=== PATIENT | female | born 1990 | race African-American/Black ===

== ENCOUNTER → 2017-07-30 | Outpatient (CLI) | payer BC ==
[~2017-07-30] MED LIST: Docusate Sodium PO; Hydrocodone Bit/Acetaminophen PO; Ibuprofen PO; PREN1TAB25 PO
--- NOTE | 2017-07-30 16:32 | Diagnostic Imaging Report ---
INDICATION: survey, patient. TECHNIQUE: Multiple real-time grayscale images were obtained over the gravid uterus. COMPARISON: None during this . FINDINGS: A single live intrauterine fetus is seen measuring at 21 weeks 4 days by composite measurements. The fetus is in cephalic presentation. Amniotic fluid is qualitatively normal. Placenta is posterior and grade 2 with no evidence of previa. heart rate is 144 beats per minute. survey shows mild prominence of the renal pelvis of both kidneys, measuring 4 mm. bladder and stomach and ventricles and three-vessel cord and spine views were normal. Cord insertion could not be visualized. There is a questionable echogenic focus over the left ventricle. Cervical length is 5.6 cm. The maternal adnexa could not be visualized. There was no free fluid. Biometrical measurements are as follows: Biparietal 5.2 cm, age 21 weeks 6 days. Head circumference 18.68 cm, age 21 weeks 1 days. Abdominal circumference 16.7 cm, age 21 weeks 6 days. Femur length 3.47 cm, age 21 weeks 0 days. Sonographic estimate age: 21 weeks 4 days. Sonographic estimated date of delivery: 12/06/2017. Estimated Weight: 417 gm (+/- 61 gm). LMP percentile: 79%. heart rate: 144 beats per minute. number: 1 of 1. IMPRESSION: Single live intrauterine fetus measuring 21 weeks 4 days in size as above. survey showed mild prominence of the renal pelvis on both sides, for which followup is suggested. There is a questionable echogenic focus in the heart which could also be reevaluated at followup. Cord insertion could not be visualized and could also be reevaluated at followup. There is no other abnormal finding. Dictated by: Dictated on workstation # [id number]
== END ==
LOC: RAD 15:21
PROVIDERS: ATTEND Obstetrics & Gynecology
DX: Z36.89 Encounter for other specified antenatal screening (principal); Z3A.21 21 weeks gestation of pregnancy
CPT/HCPCS: 76805

== ENCOUNTER → 2017-09-24 | Outpatient (CLI) | payer BC ==
--- NOTE | 2017-09-24 13:30 | Diagnostic Imaging Report ---
INDICATION: Follow-up survey. TECHNIQUE: Multiple real-time grayscale images were obtained over the gravid uterus. COMPARISON: 07/30/2017. FINDINGS: There is a single live fetus in a cephalic presentation. heart rate was recorded at 149 beats per minute. The placenta is fundal and to the left. Amniotic fluid volume is normal. Follow-up survey again shows mild prominence of the renal pelves bilaterally measuring 5 mm on the right and 4 mm on the left. Cord insertion is unremarkable. extremities and ventricular outflow tracts of the heart are unremarkable. There continues to be an echogenic focus within the heart. No new abnormality is seen. IMPRESSION: There continues to be some mild prominence of the renal pelves bilaterally and continued follow-up could be obtained. There is also echogenic focus within the heart for which follow-up could be performed. Dictated by: Dictated on workstation # [id number]
== END ==
LOC: RAD 10:55
PROVIDERS: ATTEND Obstetrics & Gynecology
DX: Z36.89 Encounter for other specified antenatal screening (principal); O28.3 Abnormal ultrasonic finding on antenatal screening of mother; Z3A.26 26 weeks gestation of pregnancy
CPT/HCPCS: 76816

== ENCOUNTER 2017-11-26 14:33 | Inpatient (IN) | payer BC ==
[~2017-11-26] VITALS: Ht 167.6 cm; Wt 99.4 kg
[2017-11-26] VITALS (37 sets, daily range): BP systolic 98–133; BP diastolic 51–82
--- OUTSIDE RECORDS SUMMARY | 2017-11-26 14:51 | XMS REPORT | Continuity of Care Document ---
Author Author [facility] Organization [facility] Address Unknown Phone Unavailable Allergies Active Description Code Type Severity Reaction Onset Reported/Identified Relationship to Patient Clinical Status Yes NKANo Known Allergies NKA Miscellaneous Allergy Unknown N/A 07/07/2007 Medications There is no data. Problems Date Dx Coded Attending Type Code Diagnosis Diagnosed By 01/13/2014 CARLOS CARDENAS DO Ot 644.13 THREAT LABOR NEC-ANTEPAR 01/13/2014 CARLOS CARDENAS DO Ot V04.81 ND FOR PROPHYLACTIC VACCIN AND INOCULATI 01/16/2014 CARLOS CARDENAS DO Ot 665.41 01/16/2014 CARLOS CARDENAS DO Ot V04.81 01/16/2014 CARLOS CARDENAS DO Ot V27.0 07/31/2017 CARLOS CARDENAS DO Ot Z36.89 ENCOUNTER FOR OTHER SPECIFIED 07/31/2017 CARLOS CARDENAS DO Ot Z3A.21 21 WEEKS GESTATION OF 07/31/2017 CARLOS CARDENAS DO Ot Z36.89 ENCOUNTER FOR OTHER SPECIFIED 07/31/2017 CARLOS CARDENAS DO Ot Z3A.21 21 WEEKS GESTATION OF 08/01/2017 CARLOS CARDENAS DO Ot Z36.89 ENCOUNTER FOR OTHER SPECIFIED 08/01/2017 CARLOS CARDENAS DO Ot Z3A.21 21 WEEKS GESTATION OF 08/17/2017 CARLOS CARDENAS DO Ot Z36.89 ENCOUNTER FOR OTHER SPECIFIED 08/17/2017 CARLOS CARDENAS DO Ot Z3A.21 21 WEEKS GESTATION OF Procedures There is no data. Results There is no data. Encounters ACCT No. Visit Date/Time Discharge Status Pt. Type Provider Facility Loc./Unit Complaint [id number] 09/24/2017 11:00:00 09/24/2017 23:59:59 CLS Preadmit CARLOS CARDENAS DO [facility] RAD EVALUATE ANATOMY NOT SEEN ON PRIOR SONOGRAM [id number] 07/30/2017 15:21:00 07/30/2017 23:59:59 CLS Outpatient CARLOS CARDENAS DO [facility] RAD Z34.92 FETUS PRESENDT DURING 2ND TRI [id number] 2014 03:30:00 01/16/2014 14:45:00 DIS [facility]patient [id number] 01/13/2014 14:44:00 01/13/2014 18:25:00 DIS Outpatient CARLOS CARDENAS DO [facility] WSo C/O LEAKING FLUID
[2017-11-26] MEDS ORDERED: D5 LR IV SOLUTION 1,000 ML IV SCH (15:11)
[2017-11-26] MEDS ORDERED: MINERAL OIL CONCENTRATE 99.9% 15 ML UDC TOP PRN (15:15)
[2017-11-26] MEDS ORDERED: LACTATED RINGERS 1,000 ML IV ONE ×2 (15:17→16:08)
[2017-11-26 15:22] LABS: BASOPHILS % (AUTO) 0 % (0-10); EOSINOPHILS % (AUTO) 0 % (0-10); HEMATOCRIT 31 % (35-52); HEMOGLOBIN 10.3 G/DL (11.5-16.0); LYMPHOCYTES # (AUTO) 1.6 X 10^3 (1.0-4.0); LYMPHOCYTES % (AUTO) 16 % (12-44); MEAN CORPUSCULAR HEMOGLOBIN 26 PG (25-34); MEAN CORPUSCULAR HGB CONC 33 G/DL (32-36); MEAN CORPUSCULAR VOLUME 77 FL (80-99); MEAN PLATELET VOLUME 10.5 FL (7.4-10.4); MONOCYTES # (AUTO) 0.6 X 10^3 (0.0-1.0); MONOCYTES % (AUTO) 6 % (0-12); NEUTROPHILS # (AUTO) 7.3 X 10^3 (1.8-7.8); NEUTROPHILS % (AUTO) 77 % (42-75); PLATELET COUNT 229 10^3/uL (130-400); RED BLOOD COUNT 4.03 10^6/uL (4.35-5.85); RED CELL DISTRIBUTION WIDTH 13.9 % (10.0-14.5); WHITE BLOOD COUNT 9.5 10^3/uL (4.3-11.0)
[2017-11-26] MEDS ORDERED: fentaNYL INJECTION 100 MCG/2 ML AMP ONE (15:33)
[2017-11-26] MEDS ORDERED: LIDOCAINE PF 2% 5 ML (XYLOCAINE) VIAL ONE (15:33)
[2017-11-26] MEDS ORDERED: PNV11TAB5 PO (15:48)
[2017-11-26] MEDS ORDERED: NALOXONE 0.4 MG/ML 1 ML (NARCAN) VIAL IV PRN (16:15)
[2017-11-26] MEDS ORDERED: CATHETER FLUSH 10 ML SYR IV PRN (16:15)
[2017-11-26] MEDS ORDERED: EPIDURAL (SUFENTA 0.6MCG/ML BUPIVA 0.125%) 100 ML BAG EPI SCH (16:15)
[2017-11-26] MEDS ORDERED: ONDANSETRON 4 MG/2 ML (SDV) Z0FRAN IV PRN (16:15)
[2017-11-26] MEDS ORDERED: diphenhydrAMINE 50 MG/ML INJ (BENADRYL) IV PRN (16:15)
[2017-11-26] MEDS ORDERED: FLU QUADRIvalent (5+ YOA) 2018-2019 (AFLURIA) 0.5 ML IM ONE (17:45)
[2017-11-26] MEDS ORDERED: OXYTOCIN/NORMAL SALINE 500 ML IV ONE (17:46)
[2017-11-26] MEDS ORDERED: OXYTOCIN/NORMAL SALINE 500 ML IV SCH ×2 (18:15→20:33)
[2017-11-26] MEDS ORDERED: LIDOCAINE/EPI 2% 1:200,00 (XYLOCAINE) 10 ML VIAL ONE (20:14)
--- NOTE | 2017-11-26 20:36 | OB Labor & Delivery Record ---
Vag Delivery Note Vag Delivery Note Date of Delivery: 11/26/17 Preoperative Diagnosis: Clare Sullivan is a 27 /Para 4/2 ,Gestational Age 37 5/7 weeks in labor Postoperative Diagnosis: Same Surgeon: CARLOS CARDENAS Anesthesia: epidural Delivery Type: vaginal Findings: [] Viable male , apgars pending, weight pending Lacerations: left labia minora and perineal/.vaginal abrasions. Intact placenta with 3 vessel cord. No nuchal cord, body cord or shoulder dystocia Estimated Blood Loss: 150 ml Complications: None Condition: Stable Description of Procedure: The patient is a 27 /Para 4/2 ,Gestational Age 37 5/7 weeks in labor She was admitted and informed consent was obtained. Her labor course was remarkable for SROM and pitocin augmentation. She progressed to complete dilatation and began to push. She was then set up for delivery. The infant's head was delivered atraumatically in the DANIELA position. The shoulders and remainder of the infant's body were then delivered without difficulty. Upon delivery, the head was held below the level of the perineum and the mouth and nares were bulb suctioned. The cord was doubly clamped and cut and the was handed off to the pediatric staff. An intact placenta with 3-vessel cord delivered via Kristina and there was found to be minimal bleeding.~ Vigorous fundal massage was performed and the fundus was found to be firm. IV oxytocin was given. Examination of the vagina and perineum revealed a no laceration. Following the delivery, sponge, instrument and needle counts were correct. Mom and baby were both in stable condition in the labor suite. Vitals - Labs Vital Signs - I&O Vital Signs Date Time Temp Pulse Resp B/P (MAP) Pulse Ox O2 Delivery O2 Flow Rate FiO2 11/26/17 19:00 68 16 116/69 (85) 98 Room Air 11/26/17 18:45 68 16 116/65 (82) 100 Room Air 11/26/17 18:30 70 16 115/65 (82) 99 Room Air 11/26/17 18:15 78 16 115/66 (82) 100 Room Air 11/26/17 18:00 88 16 105/61 (76) 98 Room Air 11/26/17 17:45 76 16 110/60 (77) 100 Room Air 11/26/17 17:30 97.9 75 16 111/62 (78) 99 Room Air 11/26/17 17:15 75 16 112/61 (78) 100 Room Air 11/26/17 17:00 74 16 118/65 (82) 100 Room Air 11/26/17 16:45 89 16 113/68 (83) 100 Room Air 11/26/17 16:30 97.3 74 16 114/61 (78) 100 Room Air 11/26/17 16:15 76 16 105/59 (74) 100 Room Air 11/26/17 16:01 87 16 114/65 (81) 100 Room Air 11/26/17 16:00 98 16 112/73 (86) 100 Room Air 11/26/17 15:55 84 16 113/71 (85) 100 Room Air 11/26/17 15:54 86 16 114/69 (84) 100 Room Air 11/26/17 15:53 82 16 123/72 (89) 100 Room Air 11/26/17 15:48 84 16 120/77 (91) 100 Room Air 11/26/17 15:42 83 16 121/80 (94) 100 Room Air 11/26/17 14:50 97.9 75 16 116/70 (85) Room Air Labs Laboratory Tests 11/26/17 15:00: White Blood Count 9.5, Red Blood Count 4.03L, Hemoglobin 10.3L, Hematocrit 31L, Mean Corpuscular Volume 77L, Mean Corpuscular Hemoglobin 26, Mean Corpuscular Hemoglobin Concent 33, Red Cell Distribution Width 13.9, Platelet Count 229, Mean Platelet Volume 10.5H, Neutrophils (%) (Auto) 77H, Lymphocytes (%) (Auto) 16, Monocytes (%) (Auto) 6, Eosinophils (%) (Auto) 0, Basophils (%) (Auto) 0, Neutrophils # (Auto) 7.3, Lymphocytes # (Auto) 1.6, Monocytes # (Auto) 0.6, Eosinophils # (Auto) 0.0, Basophils # (Auto) 0.0 CARLOS CARDENAS DO Nov 26, 2017 20:36
[2017-11-26] MEDS ORDERED: DIBUCAINE (NUPERCAINAL) 1% OINT 30 GM TOP PRN (20:45)
[2017-11-26] MEDS ORDERED: TETANUS,DIPTH,PERTUSS P/F (BOOSTRIX) 0.5 ML VIAL IM ONE (20:45)
[2017-11-26] MEDS ORDERED: BENZOCAINE/MENTHOL (DERMOPLAST) 56 ML CAN TP PRN (20:45)
[2017-11-26] MEDS ORDERED: ACETAMINOPHEN 500 MG TAB (TYLENOL) PO PRN (20:45)
[2017-11-26] MEDS ORDERED: MEASLES,MUMPS,RUBELLA 1 EA INJ SQ ONE (20:45)
[2017-11-26] MEDS ORDERED: WITCH HAZEL(TUCKS) 40 EA JAR TOP PRN (20:45)
[2017-11-26] MEDS: IBUPROFEN 600 MG (MOTRIN) TAB PO SCH (20:58)
[2017-11-26] MEDS ORDERED: CATHETER FLUSH 10 ML SYR IV SCH ×2 (22:00)
[2017-11-26] MEDS: DOCUSATE SODIUM 100 MG (COLACE) CAP PO SCH (23:46)
[2017-11-27 03:05] VITALS: BP 104/60
[2017-11-27] MEDS: IBUPROFEN 600 MG (MOTRIN) TAB PO SCH ×4 (03:10→21:23)
[2017-11-27 05:13] LABS: BASOPHILS % (AUTO) 0 % (0-10); EOSINOPHILS % (AUTO) 0 % (0-10); HEMATOCRIT 30 % (35-52); HEMOGLOBIN 9.7 G/DL (11.5-16.0); LYMPHOCYTES # (AUTO) 1.5 X 10^3 (1.0-4.0); LYMPHOCYTES % (AUTO) 9 % (12-44); MEAN CORPUSCULAR HEMOGLOBIN 25 PG (25-34); MEAN CORPUSCULAR HGB CONC 33 G/DL (32-36); MEAN CORPUSCULAR VOLUME 76 FL (80-99); MEAN PLATELET VOLUME 10.3 FL (7.4-10.4); MONOCYTES # (AUTO) 1.2 X 10^3 (0.0-1.0); MONOCYTES % (AUTO) 7 % (0-12); NEUTROPHILS # (AUTO) 13.1 X 10^3 (1.8-7.8); NEUTROPHILS % (AUTO) 83 % (42-75); PLATELET COUNT 210 10^3/uL (130-400); RED BLOOD COUNT 3.86 10^6/uL (4.35-5.85); RED CELL DISTRIBUTION WIDTH 13.9 % (10.0-14.5); WHITE BLOOD COUNT 15.7 10^3/uL (4.3-11.0)
--- NOTE | 2017-11-27 07:22 | Postpartum Progress Note ---
Note Note Day # 1 s/p Subjective: Patient is without complaints. Ambulating, voiding. Tolerating a regular diet without nausea or vomiting. Normal lochia. Pain is well controlled with oral pain medications. breast feeding. Objective: Laboratory Tests Test 11/26/17 15:00 11/27/17 04:35 Range/Units White Blood Count 9.5 15.7 H 4.3-11.0 10^3/uL Red Blood Count 4.03 L 3.86 L 4.35-5.85 10^6/uL Hemoglobin 10.3 L 9.7 L 11.5-16.0 G/DL Hematocrit 31 L 30 L 35-52 % Mean Corpuscular Volume 77 L 76 L 80-99 FL Mean Corpuscular Hemoglobin 26 25 25-34 PG Mean Corpuscular Hemoglobin Concent 33 33 32-36 G/DL Red Cell Distribution Width 13.9 13.9 10.0-14.5 % Platelet Count 229 210 130-400 10^3/uL Mean Platelet Volume 10.5 H 10.3 7.4-10.4 FL Neutrophils (%) (Auto) 77 H 83 H 42-75 % Lymphocytes (%) (Auto) 16 9 L 12-44 % Monocytes (%) (Auto) 6 7 0-12 % Eosinophils (%) (Auto) 0 0 0-10 % Basophils (%) (Auto) 0 0 0-10 % Neutrophils # (Auto) 7.3 13.1 H 1.8-7.8 X 10^3 Lymphocytes # (Auto) 1.6 1.5 1.0-4.0 X 10^3 Monocytes # (Auto) 0.6 1.2 H 0.0-1.0 X 10^3 Eosinophils # (Auto) 0.0 0.0 0.0-0.3 10^3/uL Basophils # (Auto) 0.0 0.0 0.0-0.1 10^3/uL 11/26/17 11/26/17 11/26/17 11/26/17 19:30 19:45 20:00 20:15 Pulse 77 72 75 80 Resp 16 16 16 16 B/P (MAP) 116/65 (82) 121/71 (88) 119/74 (89) 98/70 (79) Pulse Ox 100 100 100 100 O2 Delivery Room Air Room Air Non Rebreather Non Rebreather O2 Flow Rate 10.00 10.00 11/26/17 11/26/17 11/26/17 11/26/17 20:21 20:32 20:47 21:02 Temp 97.5 97.9 Pulse 76 96 95 82 Resp 16 B/P (MAP) 121/66 (84) 129/75 (93) 124/70 (88) 122/79 (93) Pulse Ox 100 O2 Delivery Room Air 11/26/17 11/26/17 11/26/17 11/26/17 21:17 21:32 21:47 22:02 Temp 97.7 Pulse 91 76 80 76 B/P (MAP) 128/77 (94) 122/67 (85) 120/72 (88) 116/67 (83) 11/26/17 11/26/17 11/26/17 11/26/17 22:17 22:47 23:02 23:17 Temp 97.6 Pulse 75 84 90 87 B/P (MAP) 106/51 (69) 125/60 (81) 133/82 (99) 126/67 (86) 11/27/17 03:05 Temp 98.3 Pulse 94 Resp 16 B/P (MAP) 104/60 (75) Pulse Ox 96 11/27/17 00:00 Intake Total 2400 ml Balance 2400 ml Physical Exam: General - Alert and oriented, no apparent distress Abdomen - Soft, appropriately tender to palpation, non-distended, fundus firm at umbilicus Extremities - no edema, negative Candace's bilaterally Assessment: 1. post- day # 1, status post spontaneous vaginal delivery. Recovering well, hemodynamically stable Plan: Routine care. Encourage breast feeding. Encourage ambulation. Ferrous sulfate supplementation. Plan for discharge tomorrow Vitals - Labs Vital Signs - I&O Vital Signs Date Time Temp Pulse Resp B/P (MAP) Pulse Ox O2 Delivery O2 Flow Rate FiO2 11/27/17 03:05 98.3 94 16 104/60 (75) 96 11/26/17 23:17 97.6 87 126/67 (86) 11/26/17 23:02 90 133/82 (99) 11/26/17 22:47 84 125/60 (81) 11/26/17 22:17 75 106/51 (69) 11/26/17 22:02 76 116/67 (83) 11/26/17 21:47 80 120/72 (88) 11/26/17 21:32 76 122/67 (85) 11/26/17 21:17 97.7 91 128/77 (94) 11/26/17 21:02 82 122/79 (93) 11/26/17 20:47 95 124/70 (88) 11/26/17 20:32 97.9 96 129/75 (93) 11/26/17 20:21 97.5 76 16 121/66 (84) 100 Room Air 11/26/17 20:15 80 16 98/70 (79) 100 Non Rebreather 10.00 11/26/17 20:00 75 16 119/74 (89) 100 Non Rebreather 10.00 11/26/17 19:45 72 16 121/71 (88) 100 Room Air 11/26/17 19:30 77 16 116/65 (82) 100 Room Air 11/26/17 19:15 73 16 118/67 (84) 100 Room Air 11/26/17 19:00 68 16 116/69 (85) 98 Room Air 11/26/17 18:45 68 16 116/65 (82) 100 Room Air 11/26/17 18:30 70 16 115/65 (82) 99 Room Air 11/26/17 18:15 78 16 115/66 (82) 100 Room Air 11/26/17 18:00 88 16 105/61 (76) 98 Room Air 11/26/17 17:45 76 16 110/60 (77) 100 Room Air 11/26/17 17:30 97.9 75 16 111/62 (78) 99 Room Air 11/26/17 17:15 75 16 112/61 (78) 100 Room Air 11/26/17 17:00 74 16 118/65 (82) 100 Room Air 11/26/17 16:45 89 16 113/68 (83) 100 Room Air 11/26/17 16:30 97.3 74 16 114/61 (78) 100 Room Air 11/26/17 16:15 76 16 105/59 (74) 100 Room Air 11/26/17 16:01 87 16 114/65 (81) 100 Room Air 10/8/18 16:00 98 16 112/73 (86) 100 Room Air 11/26/17 15:55 84 16 113/71 (85) 100 Room Air 11/26/17 15:54 86 16 114/69 (84) 100 Room Air 11/26/17 15:53 82 16 123/72 (89) 100 Room Air 11/26/17 15:48 84 16 120/77 (91) 100 Room Air 11/26/17 15:42 83 16 121/80 (94) 100 Room Air 11/26/17 14:50 97.9 75 16 116/70 (85) Room Air I & O 11/27/17 07:00 Intake Total 3300 ml Balance 3300 ml Labs Laboratory Tests 11/26/17 15:00: White Blood Count 9.5, Red Blood Count 4.03L, Hemoglobin 10.3L, Hematocrit 31L, Mean Corpuscular Volume 77L, Mean Corpuscular Hemoglobin 26, Mean Corpuscular Hemoglobin Concent 33, Red Cell Distribution Width 13.9, Platelet Count 229, Mean Platelet Volume 10.5H, Neutrophils (%) (Auto) 77H, Lymphocytes (%) (Auto) 16, Monocytes (%) (Auto) 6, Eosinophils (%) (Auto) 0, Basophils (%) (Auto) 0, Neutrophils # (Auto) 7.3, Lymphocytes # (Auto) 1.6, Monocytes # (Auto) 0.6, Eosinophils # (Auto) 0.0, Basophils # (Auto) 0.0 11/27/17 04:35: White Blood Count 15.7H, Red Blood Count 3.86L, Hemoglobin 9.7L, Hematocrit 30L , Mean Corpuscular Volume 76L, Mean Corpuscular Hemoglobin 25, Mean Corpuscular Hemoglobin Concent 33, Red Cell Distribution Width 13.9, Platelet Count 210, Mean Platelet Volume 10.3, Neutrophils (%) (Auto) 83H, Lymphocytes (%) (Auto) 9L , Monocytes (%) (Auto) 7, Eosinophils (%) (Auto) 0, Basophils (%) (Auto) 0, Neutrophils # (Auto) 13.1H, Lymphocytes # (Auto) 1.5, Monocytes # (Auto) 1.2H, Eosinophils # (Auto) 0.0, Basophils # (Auto) 0.0 CARLOS CARDENAS DO Nov 27, 2017 07:22
--- NOTE | 2017-11-27 07:36 | Anesthesia-Regional Post-Op ---
Regional Patient Condition Mental Status: Alert, Oriented x3 Circulation: Same as Pre-Op Headache: Absent Sensation: Full Recovery Motor Block: Absent Post Op Complications Complications None Follow Up Care/Instructions Patient Instructions None needed. Anesthesia/Patient Condition Patient is doing well, no complaints, stable vital signs, no apparent adverse anesthesia problems. No complications reported per nursing. D/C home per [facility] Criteria: Yes TOMI FANG CRNA Nov 27, 2017 07:36
[2017-11-27 08:30] VITALS: BP 114/73
[2017-11-27] MEDS: PRENATAL VITAMIN 1 EA TAB PO SCH (08:30)
[2017-11-27] MEDS: DOCUSATE SODIUM 100 MG (COLACE) CAP PO SCH ×2 (08:30→21:23)
[2017-11-27] MEDS: FERROUS SULF 325 MG (IRON) TAB PO SCH (08:30)
[2017-11-27 12:05] VITALS: BP 102/59
[2017-11-27 21:23] VITALS: BP 112/60
[2017-11-28 03:27] VITALS: BP 107/66
[2017-11-28] MEDS: IBUPROFEN 600 MG (MOTRIN) TAB PO SCH ×2 (03:27→08:34)
[2017-11-28] MEDS: FERROUS SULF 325 MG (IRON) TAB PO SCH (08:33)
[2017-11-28] MEDS: DOCUSATE SODIUM 100 MG (COLACE) CAP PO SCH (08:33)
[2017-11-28] MEDS: PRENATAL VITAMIN 1 EA TAB PO SCH (08:33)
[2017-11-28 08:38] VITALS: BP 111/74
[2017-11-28] MEDS ORDERED: FLU QUADRIvalent (5+ YOA) 2018-2019 (AFLURIA) 0.5 ML IM ONE (13:10)
[2017-11-28] MEDS ORDERED: ACET-77 PO (13:27)
[2017-11-28] MEDS ORDERED: FERR325T18 PO (13:27)
[2017-11-28] MEDS ORDERED: IBUP-1773 PO (13:27)
--- NOTE | 2017-11-28 13:28 | Discharge Inst-Women's Service ---
Discharge Inst-Women's Serv Depart Medication/Instructions New, Converted or Re-Newed RX: RX on Chart Final Diagnosis labor acute blood loss anemia epidural Consults/Follow Up Additional Follow Up: Yes Activity Activity: Activity as Tolerated Driving Instructions: You May Drive NO SMOKING: NO SMOKING Nothing Inside Vagina: No Douching, No Cecil-Bishop (6 weeks), No Tampons Diet Discharge Diet: No Restrictions Symptoms to Report to : Pain Increased, Fever Over 101 Degrees F, Vaginal Bleeding Increase, Cramps in Feet or Legs, Vaginal Discharge Foul For Any Problems or Questions: Contact Your Physician CARLOS CARDENAS DO Nov 28, 2017 13:28
--- OUTSIDE RECORDS SUMMARY | 2017-12-04 09:22 | XMS REPORT | Continuity of Care Document ---
Author Author [facility] Organization [facility] Address Unknown Phone Unavailable Allergies Active Description [...] Ot Z36.89 ENCOUNTER FOR OTHER SPECIFIED 07/31/2017 BEATA CARDENAS DOA C Ot Z3A.21 21 WEEKS GESTATION OF 07/31/2017 BEATA CARDENAS DOA C Ot Z36.89 ENCOUNTER FOR OTHER SPECIFIED 07/31/2017 THERESA MAYA CARLOS C Ot Z3A.21 21 WEEKS GESTATION OF 08/01/2017 BEATA CARDENAS DOA C Ot Z36.89 ENCOUNTER FOR OTHER SPECIFIED 08/01/2017 THERESA MAYA CARLOS C Ot Z3A.21 21 WEEKS GESTATION OF 08/17/2017 THERESA MAYA CARLOS C Ot Z36.89 ENCOUNTER FOR OTHER SPECIFIED 08/17/2017 BEATA CARDENAS DOA C Ot Z3A.21 21 WEEKS GESTATION OF 11/28/2017 CARLOS CARDENAS DO Ot O80 ENCOUNTER FOR FULL-TERM UNCOMPLICATED DE 11/28/2017 CARLOS CARDENAS DO Ot Z23 ENCOUNTER FOR IMMUNIZATION 11/28/2017 CARLOS CARDENAS DO Ot Z37.0 SINGLE LIVE 11/28/2017 CARLOS CARDENAS DO Ot Z3A.37 37 WEEKS GESTATION OF Procedures Code Description Performed By Performed On [id number] DELIVERY OF PRODUCTS OF CONCEPTION, EXTE 11/26/2017 Results Test Result Range Complete blood count (CBC) with automated white blood cell (WBC) differential - 11/26/17 15:00 Blood leukocytes automated count (number/volume) 9.5 10*3/uL 4.3-11.0 Blood erythrocytes automated count (number/volume) 4.03 10*6/uL 4.35-5.85 Venous blood hemoglobin measurement (mass/volume) 10.3 g/dL 11.5-16.0 Blood hematocrit (volume fraction) 31 % 35-52 Automated erythrocyte mean corpuscular volume 77 [foz_us] 80-99 Automated erythrocyte mean corpuscular hemoglobin (mass per erythrocyte) 26 pg 25-34 Automated erythrocyte mean corpuscular hemoglobin concentration measurement ( mass/volume) 33 g/dL 32-36 Automated erythrocyte distribution width ratio 13.9 % 10.0-14.5 Automated blood platelet count (count/volume) 229 10*3/uL 130-400 Automated blood platelet mean volume measurement 10.5 [foz_us] 7.4-10.4 Automated blood neutrophils/100 leukocytes 77 % 42-75 Automated blood lymphocytes/100 leukocytes 16 % 12-44 Blood monocytes/100 leukocytes 6 % 0-12 Automated blood eosinophils/100 leukocytes 0 % 0-10 Automated blood basophils/100 leukocytes 0 % 0-10 Blood neutrophils automated count (number/volume) 7.3 10*3 1.8-7.8 Blood lymphocytes automated count (number/volume) 1.6 10*3 1.0-4.0 Blood monocytes automated count (number/volume) 0.6 10*3 0.0-1.0 Automated eosinophil count 0.0 10*3/uL 0.0-0.3 Automated blood basophil count (count/volume) 0.0 10*3/uL 0.0-0.1 Blood type T Indirect antibody screen panel - 11/26/17 15:00 ABO+Rh group AP NRG Transfusion band number [id number] NRG Blood group antibody screen NEGATIVE NRG Complete blood count (CBC) with automated white blood cell (WBC) differential - 11/27/17 04:35 Blood leukocytes automated count (number/volume) 15.7 10*3/uL 4.3-11.0 Blood erythrocytes automated count (number/volume) 3.86 10*6/uL 4.35-5.85 Venous blood hemoglobin measurement (mass/volume) 9.7 g/dL 11.5-16.0 Blood hematocrit (volume fraction) 30 % 35-52 Automated erythrocyte mean corpuscular volume 76 [foz_us] 80-99 Automated erythrocyte mean corpuscular hemoglobin (mass per erythrocyte) 25 pg 25-34 Automated erythrocyte mean corpuscular hemoglobin concentration measurement ( mass/volume) 33 g/dL 32-36 Automated erythrocyte distribution width ratio 13.9 % 10.0-14.5 Automated blood platelet count (count/volume) 210 10*3/uL 130-400 Automated blood platelet mean volume measurement 10.3 [foz_us] 7.4-10.4 Automated blood neutrophils/100 leukocytes 83 % 42-75 Automated blood lymphocytes/100 leukocytes 9 % 12-44 Blood monocytes/100 leukocytes 7 % 0-12 Automated blood eosinophils/100 leukocytes 0 % 0-10 Automated blood basophils/100 leukocytes 0 % 0-10 Blood neutrophils automated count (number/volume) 13.1 10*3 1.8-7.8 Blood lymphocytes automated count (number/volume) 1.5 10*3 1.0-4.0 Blood monocytes automated count (number/volume) 1.2 10*3 0.0-1.0 Automated eosinophil count 0.0 10*3/uL 0.0-0.3 Automated blood basophil count (count/volume) 0.0 10*3/uL 0.0-0.1 Encounters ACCT No. Visit Date/Time Discharge Status Pt. Type Provider Facility Loc./Unit Complaint [id number] 11/26/2017 14:33:00 11/28/2017 14:20:00 DIS Inpatient CARLOS CARDENAS DO [facility] LDRP LABOR [id number] 09/24/2017 11:00:00 09/24/2017 23:59:59 CLS Preadmit CARLOS CARDENAS DO [facility] RAD EVALUATE ANATOMY NOT SEEN ON PRIOR SONOGRAM [id number] 07/30/2017 15:21:00 07/30/2017 23:59:59 CLS Outpatient CARLOS CARDENAS DO [facility] RAD Z34.92 FETUS PRESENDT DURING 2ND TRI [id number] 2014 03:30:00 01/16/2014 14:45:00 DIS Inpatient CARLOS CARDENAS DO [facility] [id number] 01/13/2014 14:44:00 01/13/2014 18:25:00 DIS Outpatient CARLOS CARDENAS DO [facility] WSo C/O LEAKING FLUID
== END 2017-11-28 14:20 | disposition home or self-care (01) | DRG 807 ==
LOC: UNDOADMIN 14:33 → LDRP 14:33 → UNDODISIN 11-28 14:20
PROVIDERS: ADMIT Obstetrics & Gynecology; ATTEND Obstetrics & Gynecology
PROC: 10E0XZZ Delivery of Products of Conception, External Approach (ICD-10-PCS; principal; 2017-11-26)
DX: O80 Encounter for full-term uncomplicated delivery (principal); Z3A.37 37 weeks gestation of pregnancy; Z37.0 Single live birth; Z23 Encounter for immunization
CPT/HCPCS: 36415; 85025; 86850; 86900; 86901; 90686

== ENCOUNTER → 2021-05-20 | Outpatient (CLI) | payer BC, OTHER ==
[~2021-05-20] MED LIST changes: +ACET-78 PO; +FERR325T18 PO; +IBUP-1773 PO; +PNV11TAB5 PO
--- NOTE | 2021-05-20 17:07 | Diagnostic Imaging Report ---
INDICATION: screening. TECHNIQUE: Multiple real-time grayscale images were obtained over the gravid uterus. COMPARISON: None FINDINGS: There is a single live fetus in a cephalic presentation. heart rate was recorded at 136 bpm. Placenta is posterior and fundal. Amniotic fluid volume is normal. Cervical length is 5.9 cm. kidneys, bladder and stomach are unremarkable. brain is unremarkable. There is a four-chamber heart. There is a three-vessel cord with normal insertion. spine is unremarkable. Biometrical measurements are as follows: Biparietal 4.95 cm, age 21 weeks 0 days. Head circumference 17.98 cm, age 20 weeks 3 days. Abdominal circumference 14.99 cm, age 20 weeks 2 days. Femur length 3.26 cm, age 20 weeks 2 days. Sonographic estimate age: 20 weeks 4 days. Sonographic estimated date of delivery: 10/03/2021. Estimated Weight: 342 gm (+/- 50 gm). LMP percentile: 61%. heart rate: 136 beats per minute. number: 1 of 1. IMPRESSION: Single live IUP 20 weeks 4 days gestational age. Estimated date of confinement sonographically is 10/03/2021. Dictated by: Dictated on workstation # [id number]
== END ==
LOC: RAD 14:26
PROVIDERS: ATTEND Obstetrics & Gynecology
DX: Z36.9 Encounter for antenatal screening, unspecified (principal); Z3A.20 20 weeks gestation of pregnancy
CPT/HCPCS: 76805

== ENCOUNTER 2021-09-05 12:49 | Outpatient (CLI) | payer OTHER ==
[2021-09-05 12:53] VITALS: BP 113/58
[2021-09-05 13:42] VITALS: BP 113/58
--- NOTE | 2021-09-06 08:17 | Physician Query-Final Dx ---
KRISTIE,09/06/21 0817: Clinic Account Progress/Dx Physician Query: Please give diagnosis Please include # weeks gestation Date of Service Sep 05, 2021 at 12:49 MELVINA GARCIA MD 09/06/21 0826: Clinic Account Progress/Dx DIAGNOSIS: Diagnosis 36 week gestation with leaking of fluid - ruled out SROm KRISTIE,FebSep 06, 2021 08:17 MELVINA GARCIA MD Sep 06, 2021 08:26
== END 2021-09-05 14:20 | disposition home or self-care (01) ==
LOC: WSo 12:49 → LDRP 12:50 → WSo 14:20
PROVIDERS: ATTEND Obstetrics & Gynecology
DX: O42.913 Preterm premature rupture of membranes, unspecified as to length of time between rupture and onset of labor, third trimester (principal); Z3A.36 36 weeks gestation of pregnancy
CPT/HCPCS: 84112; G0463; 99213

== ENCOUNTER 2021-10-01 14:38 | Inpatient (IN) | payer OTHER ==
[~2021-10-01] VITALS: Ht 167.7 cm; Wt 104.5 kg
[2021-10-01] VITALS (24 sets, daily range): BP systolic 88–127; BP diastolic 46–72
[2021-10-01] MEDS ORDERED: MINERAL OIL 30 ML UDC TOP PRN (15:15)
[2021-10-01] MEDS ORDERED: fentaNYL 2 mcg/ml BUPIVA 0.125 100 ML ONE (15:17)
[2021-10-01] MEDS ORDERED: OXYTOCIN PRE-MIX DRIP 500 ML IV ONE ×3 (15:17→19:09)
[2021-10-01 15:20] LABS: BASOPHILS % (AUTO) 0 % (0-10); EOSINOPHILS % (AUTO) 0 % (0-10); HEMATOCRIT 39 % (35-52); HEMOGLOBIN 13.2 g/dL (11.5-16.0); LYMPHOCYTES # (AUTO) 1.1 10^3/uL (1.0-4.0); LYMPHOCYTES % (AUTO) 10 % (12-44); MEAN CORPUSCULAR HEMOGLOBIN 27 pg (25-34); MEAN CORPUSCULAR HGB CONC 34 g/dL (32-36); MEAN CORPUSCULAR VOLUME 81 fL (80-99); MEAN PLATELET VOLUME 10.7 fL (9.0-12.2); MONOCYTES # (AUTO) 0.7 10^3/uL (0.0-1.0); MONOCYTES % (AUTO) 7 % (0-12); NEUTROPHILS # (AUTO) 8.2 10^3/uL (1.8-7.8); NEUTROPHILS % (AUTO) 81 % (42-75); PLATELET COUNT 199 10^3/uL (130-400); WHITE BLOOD COUNT 10.1 10^3/uL (4.3-11.0)
[2021-10-01] MEDS ORDERED: D5 LR IV SOLUTION 1,000 ML IV SCH ×2 (15:30→18:00)
[2021-10-01] MEDS ORDERED: BUPIVACAINE 0.25% 30 ML (SENSORCAINE) VIAL ONE (15:32)
[2021-10-01] MEDS ORDERED: fentaNYL INJ 100 MCG/2 ML AMP ONE ×2 (15:32→17:18)
--- NOTE | 2021-10-01 15:33 | History & Physical ---
History and Physical Date Seen by Provider: Oct 01, 2021 Time Seen by Provider: 15:33 This patient is a 25-year-old 4 para [address] Lane for whom I am on-call. Patient presents with complaint of spontaneous rupture membranes about 1 to 1-1/2 hours before presentation. She reports a large gush of clear fluid. On presentation her cervix was 6 cm dilated. She reports 4 cm dilated when she was last checked last week. Her has been uncomplicated. Her GBS culture was negative. She reports that she delivered quite rapidly with her last baby and she is feeling pressure. She is requesting an epidural Allergies are none Medications are vitamins Medical social and surgical history is are per the antepartum record of Dr. Lane HEENT exam is normal Neck is supple no lymphadenopathy no thyromegaly Abdomen is gravid soft nontender nondistended Extremities show no clubbing or cyanosis. No Homans' sign. Pelvic exam per the admitting nurse shows a cervix now 7 cm dilated with a vertex presentation with likely compound presentation with fingers palpable with the head.Bedside ultrasound demonstrates a Vertex presentation monitor shows contractions every 3 to 4 minutes and a category 1 heart rate pattern Assessment and plan 39-week multigravid patient with spontaneous rupture membranes and history of rapid labor and advanced dilation. We will allow an epidural/intrathecalAnd we anticipate a vaginal delivery fairly shortly 39 weeks with spontaneous rupture membranes and spontaneous labor 39 weeks with spontaneous rupture membranes and spontaneous labor Allergies and Home Medications Allergies Coded Allergies: No Known Allergies (Verified Allergy, Unknown, 07/07/07) Patient Home Medication List Home Medication List Reviewed: Yes Llz237/FA/Omega3/Dha/Fish Oil ( Gummies) 1 Each Tab.chew, 2 EACH PO D SHIRA, (Reported) Entered as Reported by: URMILA DILLARD on 11/26/17 1548 TATIANA CLARK MD Oct 01, 2021 15:33
[2021-10-01] MEDS ORDERED: IBUP-1780 PO (15:37)
--- NOTE | 2021-10-01 15:38 | Discharge Inst-Surgical ---
Discharge Inst-Surgical Depart Medication/Instructions New, Converted or Re-Newed RX: Call to Patients Pharmacy Consults/Follow Up Patient Instructions: As directed Orders & Referrals Follow Up Appt: Call to make follow up appt. for patient in [address]. Activity Per routine post vaginal delivery instructions. Please call in RX to patient pharmacy. Diet as tolerated Patient may shower or tub bathe as desired. Activity Activity as Tolerated: No Diet Discharge Diet: No Restrictions TATIANA CLARK MD Oct 01, 2021 15:38
[2021-10-01] MEDS ORDERED: LACTATED RINGERS 1,000 ML IV ONE (16:00)
[2021-10-01] MEDS ORDERED: fentaNYL 2 mcg/ml BUPIVA 0.125 100 ML IV SCH (16:00)
[2021-10-01] MEDS ORDERED: CATHETER FLUSH 10 ML SYR IV PRN (16:00)
[2021-10-01] MEDS ORDERED: NALOXONE 0.4 MG/ML 1 ML (NARCAN) VIAL IV PRN ×2 (16:00→18:00)
[2021-10-01] MEDS ORDERED: OXYTOCIN PRE-MIX DRIP 500 ML IV SCH (16:10)
[2021-10-01] MEDS ORDERED: metroNIDAZOLE 500MG/100ML IVPB 100 ML ONE (17:11)
[2021-10-01] MEDS ORDERED: ceFAZolin 2 GM IV Premixed 50 ML ONE (17:11)
[2021-10-01] MEDS ORDERED: TERBUTALINE INJ 1 MG/ML (BRETHINE) AMP ONE (17:16)
[2021-10-01] MEDS ORDERED: TERBUTALINE INJ 1 MG/ML (BRETHINE) AMP SC ONE (17:18)
[2021-10-01] MEDS ORDERED: LIDOCAINE PF 2% 5 ML (XYLOCAINE) VIAL ONE (17:27)
[2021-10-01] MEDS ORDERED: BUPIVACAINE 0.5% 30 ML (SENSORCAINE) VIAL ONE (17:27)
[2021-10-01] MEDS ORDERED: SODIUM BICARB 8.4% 50 MEQ/50 ML VIAL ONE (17:27)
[2021-10-01] MEDS ORDERED: KETOROLAC 30 MG/ML VIAL ONE (17:46)
[2021-10-01] MEDS ORDERED: ONDANSETRON 4 MG/2 ML (SDV) Z0FRAN ONE (17:55)
[2021-10-01] MEDS: KETOROLAC 30 MG/ML VIAL IV SCH ×2 (18:00→23:30)
[2021-10-01] MEDS ORDERED: fentaNYL INJ 100 MCG/2 ML AMP IVP PRN (18:00)
[2021-10-01] MEDS ORDERED: ONDANSETRON 4 MG/2 ML (SDV) Z0FRAN IVP PRN ×2 (18:00→18:15)
[2021-10-01] MEDS ORDERED: TETANUS,DIPTH,PERTUSS P/F (BOOSTRIX) 0.5 ML VIAL IM ONE (18:00)
[2021-10-01] MEDS ORDERED: HYDROmorphone 2 MG/ML VIAL (DILAUDID) IV ONE (18:15)
[2021-10-01] MEDS: OXYTOCIN PRE-MIX DRIP 500 ML IV SCH ×2 (18:26→19:10)
[2021-10-01] MEDS ORDERED: oxyCODONE/APAP 10/325MG (PERCOCET 10) TABLET PO ONE (21:30)
[2021-10-01] MEDS: DOCUSATE SODIUM 100 MG (COLACE) CAP PO SCH (21:32)
[2021-10-01] MEDS: oxyCODONE/APAP 10/325MG (PERCOCET 10) TABLET PO PRN (21:45)
[2021-10-01] MEDS: CATHETER FLUSH 10 ML SYR IV SCH (22:12)
[2021-10-01] MEDS ORDERED: diphenhydrAMINE 50 MG/ML INJ (BENADRYL) ONE (22:40)
[2021-10-01] MEDS ORDERED: diphenhydrAMINE 50 MG/ML INJ (BENADRYL) IM PRN (22:45)
[2021-10-01] MEDS ORDERED: hydrOXYzine (ATARAX) 10 MG TAB PO PRN (23:45)
[2021-10-01] MEDS ORDERED: hydrOXYzine (VISTARIL/ATARAX) 25 MG capsule/tablet PO PRN (23:46)
[2021-10-02] MEDS ORDERED: diphenhydrAMINE 50 MG/ML INJ (BENADRYL) IV PRN (02:45)
[2021-10-02] MEDS: oxyCODONE/APAP 10/325MG (PERCOCET 10) TABLET PO PRN ×4 (03:27→20:27)
--- NOTE | 2021-10-02 05:19 | OPERATIVE REPORT ---
DATE OF SERVICE: 10/01/2021 PREOPERATIVE DIAGNOSES: A 39-week in labor with compound presentation and decreased heart rate. POSTOPERATIVE DIAGNOSES: A 39-week in labor with compound presentation and decreased heart rate. OPERATIVE PROCEDURE: Primary low transverse delivery of a viable male with Apgars of 8 and 9 at 1 and 5 minutes respectively, weight of 7 pounds 7 ounces, time of 1728 and a cord blood pH of 7.30. OPERATIVE DESCRIPTION: With the patient in the supine position under satisfactory epidural analgesia, she was prepped and draped in the usual fashion for abdominal surgery. Roy catheter had been placed with her epidural and it was left to dependent drainage. A Pfannenstiel incision was made through skin with scalpel, the patient's abdomen entered in the usual manner. Bladder retractor placed in position, clean scalpel used to make a 4 cm hysterotomy incision transversely across the lower uterine segment that was extended bluntly. Here, a small amount of amniotic fluid was released. A vigorous viable male infant was delivered via the uterine incision from a presentation that was vertex, but with an arm prolapsed past the vertex and with an umbilical cord around the neck and around the arm, almost comprising a funic presentation as well. The was bulb suctioned on delivery of the head and then again on completion of delivery. The umbilical cord was doubly clamped and cut and the infant passed to the pediatric nurse in attendance for delivery. Cord bloods were obtained. The placenta delivered spontaneously Borden. It was normal with a 3-vessel cord. The uterus was exteriorized and interior wiped clean with a wet laparotomy sponge. Uterine incision then closed with running locked suture of 2-0 Vicryl. Hemostasis was complete. The uterus was returned to the abdominal cavity. All blood clot and debris removed from the abdominal cavity. Sponge and needle counts correct, hemostasis assured. The anterior parietal peritoneum was closed with running suture of 2-0 Vicryl. Rectus muscles were closed with 2-0 Vicryl, subcutaneous tissue was closed with 2-0 Vicryl and the skin was stapled. Sponge and needle counts were correct on completion of the procedure. Blood loss was around 700 mL. The patient tolerated the procedure well and was transferred to recovery room in stable condition. The infant remained with the mom. Job ID: [id number] DocumentID: [id number] Dictated Date: 10/01/2021 18:55:43 Bundling Machine Operator Date: 10/02/2021 05:18:14 Dictated By: TATIANA CLARK MD MTDD
[2021-10-02] MEDS: CATHETER FLUSH 10 ML SYR IV SCH (06:33)
[2021-10-02 06:45] VITALS: BP 112/61
[2021-10-02] MEDS: KETOROLAC 30 MG/ML VIAL IV SCH ×2 (06:45→12:15)
[2021-10-02] MEDS: SIMETHICONE 80 MG (MYLICON) CHEW PO PRN ×3 (07:51→23:42)
--- NOTE | 2021-10-02 09:01 | Anesthesia-Regional Post-Op ---
Regional Patient Condition Mental Status: Alert, Oriented x3 Circulation: Same as Pre-Op Headache: Absent Sensation: Full Recovery Motor Block: Absent Post Op Complications Complications None Follow Up Care/Instructions Patient Instructions None needed. Anesthesia/Patient Condition Patient is doing well, no complaints, stable vital signs, no apparent adverse anesthesia problems. No complications reported per nursing. D/C home per [facility] Criteria: Yes TOMI FANG CRNA Oct 02, 2021 09:01
[2021-10-02] MEDS: DOCUSATE SODIUM 100 MG (COLACE) CAP PO SCH ×2 (09:23→20:28)
[2021-10-02 09:45] VITALS: BP 112/60
--- NOTE | 2021-10-02 11:26 | Discharge Inst-Surgical ---
Discharge Inst-Surgical Depart Medication/Instructions New, Converted or Re-Newed RX: Transmitted to Pharmacy Consults/Follow Up Patient Instructions: As directed Orders & Referrals Follow Up Appt: RTC 1 week for incision check. Call to make follow up appt. for patient in 6 weeks. Wound Care: Remove tj, apply benzoin and steri strips. Activity Per routine post instructions. [facility]criptions have been patient's Percocet/Mo martin/Colace/renewal of her Zoloft. Diet as tolerated Patient may shower or tub bathe as desired. Continue home meds Activity Activity as Tolerated: No Diet Discharge Diet: No Restrictions TATIANA CLARK MD Oct 02, 2021 11:26
--- NOTE | 2021-10-02 11:28 | Progress Note ---
Standard Progress Note Progress Notes/Assess & Plan Date Seen by a Provider: Oct 02, 2021 Time Seen by a Provider: 11:26 Progress/Assessment & Plan Is withoutThis patient. She is ambulating, voiding, tolerating oral intake well and has good pain control. She denies chest pain, denies shortness of breath, and denies headache. Apparently lab work was transferred to patient's record incorrectly showing patient had a positive hepatitis B surface antigen and her record have her lab work confirmed hepatitis B surface antigen negative Vital Signs Date Time Temp Pulse Resp B/P (MAP) Pulse Ox O2 Delivery O2 Flow Rate FiO2 10/02/21 09:45 36.3 96 18 112/60 (77) 95 Room Air 10/02/21 06:45 36.1 68 18 112/61 (78) 98 Room Air 10/01/21 23:30 36.1 74 18 127/68 (87) 98 Room Air 10/01/21 20:00 35.9 68 16 108/55 (72) 98 Room Air 10/01/21 18:53 35.9 16 113/65 (81) 98 Room Air 10/01/21 18:53 Room Air 10/01/21 18:40 36.0 16 88/58 (68) 99 Room Air 10/01/21 18:40 Room Air 10/01/21 18:25 36.0 16 100/56 (71) 99 Room Air 10/01/21 18:25 Room Air 10/01/21 18:10 Room Air 10/01/21 18:10 35.9 16 99/53 (68) 98 Room Air 10/01/21 17:55 36.1 16 94/46 (62) 98 Room Air 10/01/21 17:55 Room Air 10/01/21 16:40 72 110/62 (78) 96 10/01/21 16:35 65 110/64 (79) 95 10/01/21 16:20 75 113/60 (77) 95 10/01/21 16:15 65 114/62 (79) 94 10/01/21 16:10 92 105/56 (72) 95 10/01/21 16:05 76 109/61 (77) 94 10/01/21 15:58 87 107/72 (84) 95 10/01/21 15:52 88 96/57 (70) 10/01/21 15:49 93 113/62 (79) 97 10/01/21 15:45 99 112/67 (82) 10/01/21 15:42 101 102/58 (73) 96 10/01/21 15:39 92 113/67 (82) 97 10/01/21 15:36 92 113/66 (82) 97 10/01/21 15:33 93 111/67 (82) 97 10/01/21 15:30 87 112/64 (80) 10/01/21 15:16 83 106/64 (78) Room Air 10/01/21 15:15 36.4 83 18 97 Room Air I & O 10/02/21 07:00 Intake Total 3150 ml Output Total 1950 ml Balance 1200 ml Table.Vital signs are afebrile. Fundus is firm below the umbilicus and nontender. The surgical incision is clean dry and intact Extremities show no clubbing or cyanosis. There is no Homans' sign. Pelvic exam is deferred Assessment and plan Postoperative day #1 status post primary delivery at 39+ weeks gestation. Patient is doing well will have routine convalescent care today and consider for discharge home tomorrow TATIANA CLARK MD Oct 02, 2021 11:28
[2021-10-02 12:25] VITALS: BP 111/61
[2021-10-02] MEDS: IBUPROFEN 800 MG (MOTRIN) TAB PO SCH (18:39)
[2021-10-02 18:43] VITALS: BP 110/61
[2021-10-02 23:39] VITALS: BP 116/55
[2021-10-03] MEDS: IBUPROFEN 800 MG (MOTRIN) TAB PO SCH ×2 (01:30→10:41)
[2021-10-03] MEDS: oxyCODONE/APAP 10/325MG (PERCOCET 10) TABLET PO PRN ×3 (05:06→12:08)
--- NOTE | 2021-10-03 07:52 | Progress Note ---
Standard Progress Note Progress Notes/Assess & Plan Date Seen by a Provider: Oct 03, 2021 Time Seen by a Provider: 07:50 Progress/Assessment & Plan Is withoutThis patient. She is ambulating, voiding, tolerating oral intake well and has good pain control. She denies chest pain, denies shortness of breath, and denies headache. Apparently lab work was transferred to patient's record incorrectly showing patient had a positive hepatitis B surface antigen and her record have her lab work confirmed hepatitis B surface antigen negative Vital Signs Date Time Temp Pulse Resp B/P (MAP) Pulse Ox O2 Delivery O2 Flow Rate FiO2 10/02/21 09:45 36.3 96 18 112/60 (77) 95 Room Air 10/02/21 06:45 36.1 68 18 112/61 (78) 98 Room Air 10/01/21 23:30 36.1 74 18 127/68 (87) 98 Room Air 10/01/21 20:00 35.9 68 16 108/55 (72) 98 Room Air 10/01/21 18:53 35.9 16 113/65 (81) 98 Room Air 10/01/21 18:53 Room Air 10/01/21 18:40 36.0 16 88/58 (68) 99 Room Air 10/01/21 18:40 Room Air 10/01/21 18:25 36.0 16 100/56 (71) 99 Room Air 10/01/21 18:25 Room Air 10/01/21 18:10 Room Air 10/01/21 18:10 35.9 16 99/53 (68) 98 Room Air 10/01/21 17:55 36.1 16 94/46 (62) 98 Room Air 10/01/21 17:55 Room Air 10/01/21 16:40 72 110/62 (78) 96 10/01/21 16:35 65 110/64 (79) 95 10/01/21 16:20 75 113/60 (77) 95 10/01/21 16:15 65 114/62 (79) 94 10/01/21 16:10 92 105/56 (72) 95 10/01/21 16:05 76 109/61 (77) 94 10/01/21 15:58 87 107/72 (84) 95 10/01/21 15:52 88 96/57 (70) 10/01/21 15:49 93 113/62 (79) 97 10/01/21 15:45 99 112/67 (82) 10/01/21 15:42 101 102/58 (73) 96 10/01/21 15:39 92 113/67 (82) 97 10/01/21 15:36 92 113/66 (82) 97 10/01/21 15:33 93 111/67 (82) 97 10/01/21 15:30 87 112/64 (80) 10/01/21 15:16 83 106/64 (78) Room Air 10/01/21 15:15 36.4 83 18 97 Room Air I & O 10/02/21 07:00 Intake Total 3150 ml Output Total 1950 ml Balance 1200 ml Table.Vital signs are afebrile. Fundus is firm below the umbilicus and nontender. The surgical incision is clean dry and intact Extremities show no clubbing or cyanosis. There is no Homans' sign. Pelvic exam is deferred Assessment and plan Postoperative day #1 status post primary delivery at 39+ weeks gestation. Patient is doing well will have routine convalescent care today and consider for discharge home tomorrow October 03, 2021 Patient is without complaint. She is ambulating, voiding, tolerating oral intake well has good pain control and is requesting discharge home. VS - Last 72 Hours, by Label 10/01/21 10/01/21 10/01/21 10/01/21 15:15 15:16 15:30 15:33 Temp 36.4 Pulse 83 83 87 93 Resp 18 B/P (MAP) 106/64 (78) 112/64 (80) 111/67 (82) Pulse Ox 97 97 O2 Delivery Room Air Room Air 10/01/21 10/01/21 10/01/21 10/01/21 15:36 15:39 15:42 15:45 Pulse 92 92 101 99 B/P (MAP) 113/66 (82) 113/67 (82) 102/58 (73) 112/67 (82) Pulse Ox 97 97 96 10/01/21 10/01/21 10/01/21 10/01/21 15:49 15:52 15:58 16:05 Pulse 93 88 87 76 B/P (MAP) 113/62 (79) 96/57 (70) 107/72 (84) 109/61 (77) Pulse Ox 97 95 94 10/01/21 10/01/21 10/01/21 10/01/21 16:10 16:15 16:20 16:35 Pulse 92 65 75 65 B/P (MAP) 105/56 (72) 114/62 (79) 113/60 (77) 110/64 (79) Pulse Ox 95 94 95 95 10/01/21 10/01/21 10/01/21 10/01/21 16:40 17:55 17:55 18:10 Temp 36.1 35.9 Pulse 72 Resp 16 16 B/P (MAP) 110/62 (78) 94/46 (62) 99/53 (68) Pulse Ox 96 98 98 O2 Delivery Room Air Room Air Room Air 10/01/21 10/01/21 10/01/21 10/01/21 18:10 18:25 18:25 18:40 Temp 36.0 Resp 16 B/P (MAP) 100/56 (71) Pulse Ox 99 O2 Delivery Room Air Room Air Room Air Room Air 10/01/21 10/01/21 10/01/21 10/01/21 18:40 18:53 18:53 20:00 Temp 36.0 35.9 35.9 Pulse 68 Resp 16 16 16 B/P (MAP) 88/58 (68) 113/65 (81) 108/55 (72) Pulse Ox 99 98 98 O2 Delivery Room Air Room Air Room Air Room Air 10/01/21 10/02/21 10/02/21 10/02/21 23:30 06:45 09:45 12:25 Temp 36.1 36.1 36.3 36.0 Pulse 74 68 96 72 Resp 18 18 18 18 B/P (MAP) 127/68 (87) 112/61 (78) 112/60 (77) 111/61 (78) Pulse Ox 98 98 95 96 O2 Delivery Room Air Room Air Room Air Room Air 10/02/21 10/02/21 18:43 23:39 Temp 35.9 36.2 Pulse 69 68 Resp 18 14 B/P (MAP) 110/61 (77) 116/55 (75) Pulse Ox 96 98 O2 Delivery Room Air Room Air Vital signs are stable. Patient is afebrile. The abdomen is benign. The surgical incision is clean dry and intact Extremities show no clubbing or cyanosis. There is no Homans' sign. Assessment and plan Postoperative day #10 status post primary delivery at 39+ weeks gestation. Patient is doing well but will be allowed discharge home today or tomorrow as she prefers Final Diagnosis 39-week primary delivery TATIANA CLARK MD Oct 03, 2021 07:52
[2021-10-03 08:16] VITALS: BP 113/56
[2021-10-03] MEDS: DOCUSATE SODIUM 100 MG (COLACE) CAP PO SCH (10:40)
[2021-10-03 13:35] VITALS: BP 113/56
== END 2021-10-03 13:40 | disposition home or self-care (01) | DRG 788 ==
LOC: LDRP 14:38 → WSo 14:38 → LDRP 15:07 → WS 18:32
PROVIDERS: ADMIT Obstetrics & Gynecology; ATTEND Obstetrics & Gynecology
PROC: 10D00Z1 Extraction of Products of Conception, Low, Open Approach (ICD-10-PCS; principal; 2021-10-01 17:05)
DX: O32.6XX0 Maternal care for compound presentation, not applicable or unspecified (principal); Z3A.39 39 weeks gestation of pregnancy; Z37.0 Single live birth; O76 Abnormality in fetal heart rate and rhythm complicating labor and delivery
CPT/HCPCS: 36415; 85025; 86850; 86900; 86901; 94664